=== PATIENT | male | born 1990 | race Caucasian/White ===

== ENCOUNTER 2016-12-03 16:50 | Inpatient (IN) | payer OTHER ==
[2016-12-03 19:45] VITALS: BMI 24.1
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
[2016-12-03] MEDS ORDERED: MENTHOL/PHENOL 1 EACH UD MM PRN (20:25)
[2016-12-03] MEDS ORDERED: MAGNESIUM CITRATE 300 ML BOTTLE PO PRN (20:25)
[2016-12-03] MEDS ORDERED: LOPERAMIDE HCL 2 MG CAPSULE PO PRN (20:25)
[2016-12-03] MEDS ORDERED: ACETAMINOPHEN 325 MG TABLET (FP) PO PRN (20:25)
[2016-12-03] MEDS ORDERED: IBUPROFEN 400 MG TABLET (FP) PO PRN (20:25)
[2016-12-03] MEDS ORDERED: P-EPHED 60MG/TRIPROLIDI 2.5MG TABLET PO PRN (20:25)
[2016-12-03] MEDS ORDERED: MAG HYDROX/AL HYDROX/SIMETH 30 ML UNIT-DOSE CUP PO PRN (20:25)
[2016-12-03] MEDS ORDERED: ONDANSETRON *ODT* 4 MG TABLET SL PRN (20:34)
[2016-12-03] MEDS ORDERED: PATIENT'S OWN MEDICATION (NON-FORMULARY) (Omeprazole 40 MG) PO SCH (22:00)
[2016-12-03] MEDS: BUDESONIDE/FORMETEROL FUMARATE 80/4.5 mcg INHALER IH SCH (22:22)
[2016-12-03] MEDS: THIAMINE HCL 100 MG TABLET (FP) PO SCH (22:22)
[2016-12-03] MEDS: DOCUSATE SODIUM 100 MG CAPSULE (FP) PO SCH (22:22)
[2016-12-03 23:16] LABS: URINE APPEARANCE CLEAR; URINE BILIRUBIN NEGATIVE (NEGATIVE); URINE BLOOD NEGATIVE (NEGATIVE); URINE COLOR COLORLESS; URINE GLUCOSE (UA) NEGATIVE (NEGATIVE); URINE KETONE NEGATIVE (NEGATIVE); URINE LEUK ESTERASE NEGATIVE (NEGATIVE); URINE NITRITE NEGATIVE (NEGATIVE); URINE PROTEIN NEGATIVE (NEGATIVE); URINE UROBILINOGEN NEGATIVE E.U./dl (0.2-1.0)
[2016-12-04] MEDS ORDERED: METHADONE HCL 40 MG DISPERSABLE TABLET PO SCH (06:00)
[2016-12-04] MEDS ORDERED: METHADONE HCL 40 MG DISPERSABLE TABLET ONE (09:04)
[2016-12-04] MEDS ORDERED: METHADONE HCL 10 MG TABLET ONE (09:05)
[2016-12-04] MEDS: METHADONE 40 MG, METHADONE 20 MG PO SCH (09:06)
[2016-12-04] MEDS: BUDESONIDE/FORMETEROL FUMARATE 80/4.5 mcg INHALER IH SCH ×2 (09:08→21:54)
[2016-12-04] MEDS: PRENATAL VITAMINS W/ FOLIC ACID TABLET (FP) PO SCH (09:08)
[2016-12-04] MEDS: DOCUSATE SODIUM 100 MG CAPSULE (FP) PO SCH ×2 (09:08→21:54)
[2016-12-04] MEDS: NICOTINE POLACRILEX 2 MG GUM BC PRN (09:09)
[2016-12-04] MEDS: NICOTINE 21 MG/24 HOURS TOPICAL PATCH TD SCH (09:09)
[2016-12-04] MEDS: FLUTICASONE PROP 0.05% 16 GM NASAL SPRAY NS SCH (10:41)
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
[2016-12-04] MEDS ORDERED: hydrOXYzine PAMOATE 50 MG CAPSULE (FP) PO PRN (11:19)
[2016-12-04] MEDS ORDERED: PNEUMOCOCCAL 23 VACCINE 0.5 ML VIAL IM ONE (12:00)
[2016-12-04] MEDS ORDERED: PNEUMOC 13-VAL CONJ-DIP CRM/PF 0.5 ML DISP.SYRIN IM ONE (12:00)
[2016-12-04] MEDS ORDERED: INFLUENZA VACCINE 45 MCG/0.5 ML (MDV 16-17) IM ONE (12:00)
[2016-12-04 14:53] LABS: ALBUMIN 4.6 g/dl (3.4-5.0); ALK PHOS 64 U/L (45-117); ANION GAP 0 (8-16); BILIRUBIN,TOTAL 0.4 mg/dL (0.2-1.0); CALCIUM 10.3 mg/dL (8.5-10.1); CO2 28 mmol/L (21-32); CREATININE 0.9 mg/dL (0.7-1.3); GLUCOSE,RANDOM 92 mg/dL (74-106); SGOT/AST 17 U/L (15-37); SGPT/ALT 24 U/L (12-78); TOT PROT 7.8 g/dl (6.4-8.2)
[2016-12-04] MEDS: THIAMINE HCL 100 MG TABLET (FP) PO SCH (21:54)
[2016-12-04] MEDS: busPIRone HCL 5 MG TABLET PO SCH (21:54)
[2016-12-05] MEDS ORDERED: METHADONE HCL 40 MG DISPERSABLE TABLET ONE (03:09)
[2016-12-05] MEDS ORDERED: METHADONE HCL 10 MG TABLET ONE (03:09)
[2016-12-05] MEDS: METHADONE 40 MG, METHADONE 20 MG PO SCH (06:50)
[2016-12-05] MEDS: PATIENT'S OWN MEDICATION (NON-FORMULARY) (Omeprazole 40 MG) PO SCH (10:18)
[2016-12-05] MEDS: BUDESONIDE/FORMETEROL FUMARATE 80/4.5 mcg INHALER IH SCH ×2 (10:19→21:53)
[2016-12-05] MEDS: PRENATAL VITAMINS W/ FOLIC ACID TABLET (FP) PO SCH (10:19)
[2016-12-05] MEDS: DOCUSATE SODIUM 100 MG CAPSULE (FP) PO SCH ×2 (10:19→21:53)
[2016-12-05] MEDS: busPIRone HCL 5 MG TABLET PO SCH ×2 (10:19→21:53)
[2016-12-05] MEDS: FLUTICASONE PROP 0.05% 16 GM NASAL SPRAY NS SCH (10:20)
[2016-12-05] MEDS: NICOTINE 21 MG/24 HOURS TOPICAL PATCH TD SCH (10:20)
[2016-12-05 14:09] LABS: MCH 28.3 pg (25.7-33.7); MCHC 32.8 g/dl (32.0-35.9); MEAN CELL VOLUME 86.3 fl (80-96); MEAN PLT VOLUME 8.3 fl (7.5-11.1); PLATELET COUNT 198 K/MM3 (134-434); RDW 13.6 % (11.9-15.9); WHITE BLOOD COUNT 8.3 K/mm3 (4.0-10.0)
[2016-12-05] MEDS: THIAMINE HCL 100 MG TABLET (FP) PO SCH (21:53)
[2016-12-06] MEDS ORDERED: METHADONE HCL 10 MG TABLET ONE (04:07)
[2016-12-06] MEDS ORDERED: METHADONE HCL 40 MG DISPERSABLE TABLET ONE (04:07)
[2016-12-06] MEDS: METHADONE 40 MG, METHADONE 20 MG PO SCH (06:44)
[2016-12-06] MEDS: BUDESONIDE/FORMETEROL FUMARATE 80/4.5 mcg INHALER IH SCH ×2 (10:14→22:00)
[2016-12-06] MEDS: NICOTINE 21 MG/24 HOURS TOPICAL PATCH TD SCH (10:15)
[2016-12-06] MEDS: FLUTICASONE PROP 0.05% 16 GM NASAL SPRAY NS SCH (10:15)
[2016-12-06] MEDS: PRENATAL VITAMINS W/ FOLIC ACID TABLET (FP) PO SCH (10:15)
[2016-12-06] MEDS: PATIENT'S OWN MEDICATION (NON-FORMULARY) (Omeprazole 40 MG) PO SCH (10:15)
[2016-12-06] MEDS: busPIRone HCL 5 MG TABLET PO SCH ×2 (10:15→21:42)
[2016-12-06] MEDS: DOCUSATE SODIUM 100 MG CAPSULE (FP) PO SCH ×2 (10:15→21:42)
[2016-12-06] MEDS: THIAMINE HCL 100 MG TABLET (FP) PO SCH (21:42)
[2016-12-06] MEDS: diphenhydrAMINE HCL 50 MG CAPSULE PO PRN (21:42)
[2016-12-07] MEDS ORDERED: METHADONE HCL 10 MG TABLET ONE (06:19)
[2016-12-07] MEDS ORDERED: METHADONE HCL 40 MG DISPERSABLE TABLET ONE (06:19)
[2016-12-07] MEDS: METHADONE 40 MG, METHADONE 20 MG PO SCH (06:39)
[2016-12-07] MEDS: DOCUSATE SODIUM 100 MG CAPSULE (FP) PO SCH ×2 (10:35→21:50)
[2016-12-07] MEDS: BUDESONIDE/FORMETEROL FUMARATE 80/4.5 mcg INHALER IH SCH ×2 (10:35→21:50)
[2016-12-07] MEDS: busPIRone HCL 5 MG TABLET PO SCH ×2 (10:35→21:50)
[2016-12-07] MEDS: PRENATAL VITAMINS W/ FOLIC ACID TABLET (FP) PO SCH (10:35)
[2016-12-07] MEDS: PATIENT'S OWN MEDICATION (NON-FORMULARY) (Omeprazole 40 MG) PO SCH (10:35)
[2016-12-07] MEDS: NICOTINE 21 MG/24 HOURS TOPICAL PATCH TD SCH (10:36)
[2016-12-07] MEDS: FLUTICASONE PROP 0.05% 16 GM NASAL SPRAY NS SCH (10:36)
[2016-12-07] MEDS: NICOTINE POLACRILEX 2 MG GUM BC PRN (12:39)
[2016-12-07] MEDS: diphenhydrAMINE HCL 50 MG CAPSULE PO PRN (21:51)
[2016-12-07] MEDS: THIAMINE HCL 100 MG TABLET (FP) PO SCH (21:51)
[2016-12-08] MEDS ORDERED: METHADONE HCL 10 MG TABLET ONE (03:09)
[2016-12-08] MEDS ORDERED: METHADONE HCL 40 MG DISPERSABLE TABLET ONE (03:09)
[2016-12-08] MEDS: METHADONE 40 MG, METHADONE 20 MG PO SCH (06:58)
[2016-12-08] MEDS: busPIRone HCL 5 MG TABLET PO SCH ×2 (09:40→21:26)
[2016-12-08] MEDS: NICOTINE 21 MG/24 HOURS TOPICAL PATCH TD SCH (09:40)
[2016-12-08] MEDS: PRENATAL VITAMINS W/ FOLIC ACID TABLET (FP) PO SCH (09:40)
[2016-12-08] MEDS: DOCUSATE SODIUM 100 MG CAPSULE (FP) PO SCH ×2 (09:40→21:26)
[2016-12-08] MEDS: BUDESONIDE/FORMETEROL FUMARATE 80/4.5 mcg INHALER IH SCH ×2 (09:41→21:25)
[2016-12-08] MEDS: PATIENT'S OWN MEDICATION (NON-FORMULARY) (Omeprazole 40 MG) PO SCH (09:41)
[2016-12-08] MEDS: FLUTICASONE PROP 0.05% 16 GM NASAL SPRAY NS SCH (09:41)
[2016-12-08] MEDS: THIAMINE HCL 100 MG TABLET (FP) PO SCH (21:26)
[2016-12-08] MEDS: diphenhydrAMINE HCL 50 MG CAPSULE PO PRN (21:26)
[2016-12-09] MEDS ORDERED: METHADONE HCL 40 MG DISPERSABLE TABLET ONE (03:22)
[2016-12-09] MEDS ORDERED: METHADONE HCL 10 MG TABLET ONE (03:22)
[2016-12-09] MEDS: METHADONE 40 MG, METHADONE 20 MG PO SCH (06:45)
[2016-12-09] MEDS: DOCUSATE SODIUM 100 MG CAPSULE (FP) PO SCH ×2 (10:15→21:41)
[2016-12-09] MEDS: busPIRone HCL 5 MG TABLET PO SCH ×2 (10:15→21:41)
[2016-12-09] MEDS: BUDESONIDE/FORMETEROL FUMARATE 80/4.5 mcg INHALER IH SCH ×2 (10:15→21:41)
[2016-12-09] MEDS: PRENATAL VITAMINS W/ FOLIC ACID TABLET (FP) PO SCH (10:15)
[2016-12-09] MEDS: PATIENT'S OWN MEDICATION (NON-FORMULARY) (Omeprazole 40 MG) PO SCH (10:16)
[2016-12-09] MEDS: FLUTICASONE PROP 0.05% 16 GM NASAL SPRAY NS SCH (10:16)
[2016-12-09] MEDS: NICOTINE 21 MG/24 HOURS TOPICAL PATCH TD SCH (10:16)
[2016-12-09] MEDS ORDERED: HYDROCORTISONE 1% TOPICAL CREAM 30 GM TUBE TP PRN (14:29)
[2016-12-09] MEDS: COLLOIDAL OATMEAL 1 BAR EACH TP PRN (21:39)
[2016-12-09] MEDS: THIAMINE HCL 100 MG TABLET (FP) PO SCH (21:41)
[2016-12-09] MEDS: diphenhydrAMINE HCL 50 MG CAPSULE PO PRN (21:41)
[2016-12-10] MEDS ORDERED: METHADONE HCL 40 MG DISPERSABLE TABLET ONE (05:14)
[2016-12-10] MEDS ORDERED: METHADONE HCL 10 MG TABLET ONE (05:14)
[2016-12-10] MEDS: METHADONE 40 MG, METHADONE 20 MG PO SCH (06:53)
[2016-12-10] MEDS: DOCUSATE SODIUM 100 MG CAPSULE (FP) PO SCH ×2 (09:53→21:22)
[2016-12-10] MEDS: BUDESONIDE/FORMETEROL FUMARATE 80/4.5 mcg INHALER IH SCH ×2 (09:53→21:22)
[2016-12-10] MEDS: PATIENT'S OWN MEDICATION (NON-FORMULARY) (Omeprazole 40 MG) PO SCH (09:53)
[2016-12-10] MEDS: PRENATAL VITAMINS W/ FOLIC ACID TABLET (FP) PO SCH (09:53)
[2016-12-10] MEDS: busPIRone HCL 5 MG TABLET PO SCH ×2 (09:53→21:22)
[2016-12-10] MEDS: FLUTICASONE PROP 0.05% 16 GM NASAL SPRAY NS SCH (09:53)
[2016-12-10] MEDS: NICOTINE 21 MG/24 HOURS TOPICAL PATCH TD SCH (09:54)
[2016-12-10] MEDS: MAGNESIUM HYDROX 2400MG/30ML ORAL SUSPENSION 30 ML CUP PO PRN (09:55)
[2016-12-10] MEDS: THIAMINE HCL 100 MG TABLET (FP) PO SCH (21:22)
[2016-12-10] MEDS: diphenhydrAMINE HCL 50 MG CAPSULE PO PRN (21:23)
[2016-12-11] MEDS ORDERED: METHADONE HCL 40 MG DISPERSABLE TABLET ONE (05:15)
[2016-12-11] MEDS ORDERED: METHADONE HCL 10 MG TABLET ONE (05:15)
[2016-12-11] MEDS: METHADONE 40 MG, METHADONE 20 MG PO SCH (06:30)
[2016-12-11] MEDS: busPIRone HCL 5 MG TABLET PO SCH ×2 (09:51→21:17)
[2016-12-11] MEDS: BUDESONIDE/FORMETEROL FUMARATE 80/4.5 mcg INHALER IH SCH ×2 (09:51→21:17)
[2016-12-11] MEDS: PRENATAL VITAMINS W/ FOLIC ACID TABLET (FP) PO SCH (09:51)
[2016-12-11] MEDS: DOCUSATE SODIUM 100 MG CAPSULE (FP) PO SCH ×2 (09:51→21:17)
[2016-12-11] MEDS: PATIENT'S OWN MEDICATION (NON-FORMULARY) (Omeprazole 40 MG) PO SCH (09:51)
[2016-12-11] MEDS: FLUTICASONE PROP 0.05% 16 GM NASAL SPRAY NS SCH (09:52)
[2016-12-11] MEDS: NICOTINE 21 MG/24 HOURS TOPICAL PATCH TD SCH (09:52)
[2016-12-11] MEDS ORDERED: NICOTINE 21 MG/24 HOURS TOPICAL PATCH TD PRN (18:03)
[2016-12-11] MEDS ORDERED: NICOTINE POLACRILEX 2 MG GUM BC PRN (18:04)
--- NOTE | 2016-12-11 18:06 | PN ---
S Progress Note Note: received nurse call patient dose not want 21 mg nicotine placement patch favor 4 mg gum continue rehab
[2016-12-11] MEDS: THIAMINE HCL 100 MG TABLET (FP) PO SCH (21:17)
[2016-12-11] MEDS: diphenhydrAMINE HCL 50 MG CAPSULE PO PRN (21:18)
[2016-12-12] MEDS ORDERED: METHADONE HCL 40 MG DISPERSABLE TABLET ONE (05:42)
[2016-12-12] MEDS ORDERED: METHADONE HCL 10 MG TABLET ONE (05:43)
[2016-12-12] MEDS: METHADONE 40 MG, METHADONE 20 MG PO SCH (06:26)
[2016-12-12] MEDS: PATIENT'S OWN MEDICATION (NON-FORMULARY) (Omeprazole 40 MG) PO SCH (09:59)
[2016-12-12] MEDS: BUDESONIDE/FORMETEROL FUMARATE 80/4.5 mcg INHALER IH SCH ×2 (09:59→21:35)
[2016-12-12] MEDS: busPIRone HCL 5 MG TABLET PO SCH ×2 (09:59→21:35)
[2016-12-12] MEDS: PRENATAL VITAMINS W/ FOLIC ACID TABLET (FP) PO SCH (09:59)
[2016-12-12] MEDS: FLUTICASONE PROP 0.05% 16 GM NASAL SPRAY NS SCH (10:00)
[2016-12-12] MEDS: DOCUSATE SODIUM 100 MG CAPSULE (FP) PO SCH ×2 (10:00→21:35)
[2016-12-12] MEDS: THIAMINE HCL 100 MG TABLET (FP) PO SCH (21:34)
[2016-12-12] MEDS: diphenhydrAMINE HCL 50 MG CAPSULE PO PRN (21:36)
[2016-12-13] MEDS ORDERED: METHADONE HCL 40 MG DISPERSABLE TABLET ONE (03:06)
[2016-12-13] MEDS ORDERED: METHADONE HCL 10 MG TABLET ONE (03:07)
[2016-12-13] MEDS: METHADONE 40 MG, METHADONE 20 MG PO SCH (06:40)
[2016-12-13] MEDS: BUDESONIDE/FORMETEROL FUMARATE 80/4.5 mcg INHALER IH SCH ×2 (09:55→21:26)
[2016-12-13] MEDS: PRENATAL VITAMINS W/ FOLIC ACID TABLET (FP) PO SCH (09:55)
[2016-12-13] MEDS: FLUTICASONE PROP 0.05% 16 GM NASAL SPRAY NS SCH (09:55)
[2016-12-13] MEDS: DOCUSATE SODIUM 100 MG CAPSULE (FP) PO SCH ×2 (09:55→21:25)
[2016-12-13] MEDS: PATIENT'S OWN MEDICATION (NON-FORMULARY) (Omeprazole 40 MG) PO SCH (09:55)
[2016-12-13] MEDS: busPIRone HCL 5 MG TABLET PO SCH ×2 (09:55→21:26)
[2016-12-13] MEDS: diphenhydrAMINE HCL 50 MG CAPSULE PO PRN (21:26)
[2016-12-13] MEDS: THIAMINE HCL 100 MG TABLET (FP) PO SCH (21:26)
[2016-12-14] MEDS ORDERED: METHADONE HCL 10 MG TABLET ONE (03:54)
[2016-12-14] MEDS ORDERED: METHADONE HCL 40 MG DISPERSABLE TABLET ONE (03:54)
[2016-12-14] MEDS: METHADONE 40 MG, METHADONE 20 MG PO SCH (06:23)
[2016-12-14] MEDS: FLUTICASONE PROP 0.05% 16 GM NASAL SPRAY NS SCH (10:22)
[2016-12-14] MEDS: busPIRone HCL 5 MG TABLET PO SCH ×2 (10:22→21:23)
[2016-12-14] MEDS: PRENATAL VITAMINS W/ FOLIC ACID TABLET (FP) PO SCH (10:22)
[2016-12-14] MEDS: PATIENT'S OWN MEDICATION (NON-FORMULARY) (Omeprazole 40 MG) PO SCH (10:22)
[2016-12-14] MEDS: BUDESONIDE/FORMETEROL FUMARATE 80/4.5 mcg INHALER IH SCH ×2 (10:22→21:22)
[2016-12-14] MEDS: DOCUSATE SODIUM 100 MG CAPSULE (FP) PO SCH ×2 (10:22→21:23)
[2016-12-14] MEDS: diphenhydrAMINE HCL 50 MG CAPSULE PO PRN (21:22)
[2016-12-14] MEDS: THIAMINE HCL 100 MG TABLET (FP) PO SCH (21:22)
[2016-12-15] MEDS ORDERED: METHADONE HCL 40 MG DISPERSABLE TABLET ONE (03:27)
[2016-12-15] MEDS ORDERED: METHADONE HCL 10 MG TABLET ONE (03:28)
[2016-12-15] MEDS: METHADONE 40 MG, METHADONE 20 MG PO SCH (06:31)
[2016-12-15] MEDS: BUDESONIDE/FORMETEROL FUMARATE 80/4.5 mcg INHALER IH SCH ×2 (10:14→21:35)
[2016-12-15] MEDS: FLUTICASONE PROP 0.05% 16 GM NASAL SPRAY NS SCH (10:14)
[2016-12-15] MEDS: busPIRone HCL 5 MG TABLET PO SCH ×2 (10:14→21:34)
[2016-12-15] MEDS: PRENATAL VITAMINS W/ FOLIC ACID TABLET (FP) PO SCH (10:14)
[2016-12-15] MEDS: PATIENT'S OWN MEDICATION (NON-FORMULARY) (Omeprazole 40 MG) PO SCH (10:15)
[2016-12-15] MEDS: DOCUSATE SODIUM 100 MG CAPSULE (FP) PO SCH ×2 (10:15→21:34)
[2016-12-15] MEDS: THIAMINE HCL 100 MG TABLET (FP) PO SCH (21:34)
[2016-12-15] MEDS: diphenhydrAMINE HCL 50 MG CAPSULE PO PRN (21:35)
[2016-12-16] MEDS ORDERED: METHADONE HCL 40 MG DISPERSABLE TABLET ONE (03:08)
[2016-12-16] MEDS ORDERED: METHADONE HCL 10 MG TABLET ONE (03:08)
[2016-12-16] MEDS: METHADONE 40 MG, METHADONE 20 MG PO SCH (06:19)
[2016-12-16] MEDS: FLUTICASONE PROP 0.05% 16 GM NASAL SPRAY NS SCH (10:44)
[2016-12-16] MEDS: busPIRone HCL 5 MG TABLET PO SCH ×2 (10:44→21:28)
[2016-12-16] MEDS: DOCUSATE SODIUM 100 MG CAPSULE (FP) PO SCH ×2 (10:44→21:28)
[2016-12-16] MEDS: BUDESONIDE/FORMETEROL FUMARATE 80/4.5 mcg INHALER IH SCH ×2 (10:44→21:28)
[2016-12-16] MEDS: PRENATAL VITAMINS W/ FOLIC ACID TABLET (FP) PO SCH (10:44)
[2016-12-16] MEDS: PATIENT'S OWN MEDICATION (NON-FORMULARY) (Omeprazole 40 MG) PO SCH (10:45)
[2016-12-16] MEDS: THIAMINE HCL 100 MG TABLET (FP) PO SCH (21:28)
[2016-12-16] MEDS: diphenhydrAMINE HCL 50 MG CAPSULE PO PRN ×2 (21:29→23:44)
[2016-12-16] MEDS: MAGNESIUM HYDROX 2400MG/30ML ORAL SUSPENSION 30 ML CUP PO PRN (21:30)
[2016-12-17] MEDS ORDERED: METHADONE HCL 10 MG TABLET PO SCH (07:45)
[2016-12-17] MEDS ORDERED: METHADONE HCL 10 MG TABLET PO ONE (08:34)
[2016-12-17] MEDS ORDERED: METHADONE 40 MG, METHADONE 20 MG PO ONE (08:42)
[2016-12-17] MEDS ORDERED: METHADONE HCL 40 MG DISPERSABLE TABLET ONE (08:48)
[2016-12-17] MEDS ORDERED: METHADONE HCL 10 MG TABLET ONE (08:48)
[2016-12-17] MEDS: BUDESONIDE/FORMETEROL FUMARATE 80/4.5 mcg INHALER IH SCH ×2 (10:25→21:51)
[2016-12-17] MEDS: FLUTICASONE PROP 0.05% 16 GM NASAL SPRAY NS SCH (10:25)
[2016-12-17] MEDS: DOCUSATE SODIUM 100 MG CAPSULE (FP) PO SCH ×2 (10:25→21:51)
[2016-12-17] MEDS: PRENATAL VITAMINS W/ FOLIC ACID TABLET (FP) PO SCH (10:25)
[2016-12-17] MEDS: busPIRone HCL 5 MG TABLET PO SCH ×2 (10:25→21:51)
[2016-12-17] MEDS: THIAMINE HCL 100 MG TABLET (FP) PO SCH (21:51)
[2016-12-18] MEDS ORDERED: METHADONE HCL 40 MG DISPERSABLE TABLET ONE (06:06)
[2016-12-18] MEDS ORDERED: METHADONE HCL 10 MG TABLET ONE (06:06)
[2016-12-18] MEDS: METHADONE 40 MG, METHADONE 20 MG PO SCH (06:36)
[2016-12-18] MEDS: FLUTICASONE PROP 0.05% 16 GM NASAL SPRAY NS SCH (10:31)
[2016-12-18] MEDS: BUDESONIDE/FORMETEROL FUMARATE 80/4.5 mcg INHALER IH SCH ×2 (10:31→21:44)
[2016-12-18] MEDS: PRENATAL VITAMINS W/ FOLIC ACID TABLET (FP) PO SCH (10:31)
[2016-12-18] MEDS: POLYETHYLENE GLYCOL 3350 119 GM BTL PO SCH (10:32)
[2016-12-18] MEDS: PANTOPRAZOLE 40 MG TABLET (FP) PO SCH (10:32)
[2016-12-18] MEDS: busPIRone HCL 5 MG TABLET PO SCH ×2 (10:32→21:44)
[2016-12-18] MEDS: DOCUSATE SODIUM 100 MG CAPSULE (FP) PO SCH ×2 (10:32→21:44)
[2016-12-18] MEDS: THIAMINE HCL 100 MG TABLET (FP) PO SCH (21:44)
[2016-12-18] MEDS: diphenhydrAMINE HCL 50 MG CAPSULE PO PRN (21:45)
[2016-12-18] MEDS: MAGNESIUM HYDROX 2400MG/30ML ORAL SUSPENSION 30 ML CUP PO PRN (21:46)
[2016-12-19] MEDS ORDERED: METHADONE HCL 40 MG DISPERSABLE TABLET ONE (03:12)
[2016-12-19] MEDS ORDERED: METHADONE HCL 10 MG TABLET ONE (03:12)
[2016-12-19] MEDS: METHADONE 40 MG, METHADONE 20 MG PO SCH (06:12)
[2016-12-19] MEDS: DOCUSATE SODIUM 100 MG CAPSULE (FP) PO SCH ×2 (10:00→22:01)
[2016-12-19] MEDS: PANTOPRAZOLE 40 MG TABLET (FP) PO SCH (10:00)
[2016-12-19] MEDS: BUDESONIDE/FORMETEROL FUMARATE 80/4.5 mcg INHALER IH SCH ×2 (10:01→22:01)
[2016-12-19] MEDS: PRENATAL VITAMINS W/ FOLIC ACID TABLET (FP) PO SCH (10:01)
[2016-12-19] MEDS: POLYETHYLENE GLYCOL 3350 119 GM BTL PO SCH (10:01)
[2016-12-19] MEDS: FLUTICASONE PROP 0.05% 16 GM NASAL SPRAY NS SCH (10:01)
[2016-12-19] MEDS: busPIRone HCL 5 MG TABLET PO SCH ×2 (10:01→22:01)
[2016-12-19] MEDS: THIAMINE HCL 100 MG TABLET (FP) PO SCH (22:01)
[2016-12-19] MEDS: diphenhydrAMINE HCL 50 MG CAPSULE PO PRN (22:02)
[2016-12-20] MEDS ORDERED: METHADONE HCL 40 MG DISPERSABLE TABLET ONE (06:39)
[2016-12-20] MEDS ORDERED: METHADONE HCL 10 MG TABLET ONE (06:40)
[2016-12-20] MEDS: METHADONE 40 MG, METHADONE 20 MG PO SCH (06:40)
[2016-12-20] MEDS: DOCUSATE SODIUM 100 MG CAPSULE (FP) PO SCH ×2 (09:53→21:21)
[2016-12-20] MEDS: PRENATAL VITAMINS W/ FOLIC ACID TABLET (FP) PO SCH (09:53)
[2016-12-20] MEDS: PANTOPRAZOLE 40 MG TABLET (FP) PO SCH (09:53)
[2016-12-20] MEDS: FLUTICASONE PROP 0.05% 16 GM NASAL SPRAY NS SCH (09:53)
[2016-12-20] MEDS: busPIRone HCL 5 MG TABLET PO SCH ×2 (09:53→21:21)
[2016-12-20] MEDS: BUDESONIDE/FORMETEROL FUMARATE 80/4.5 mcg INHALER IH SCH ×2 (09:54→21:21)
[2016-12-20] MEDS: POLYETHYLENE GLYCOL 3350 119 GM BTL PO SCH (09:56)
[2016-12-20] MEDS: THIAMINE HCL 100 MG TABLET (FP) PO SCH (21:21)
[2016-12-20] MEDS: diphenhydrAMINE HCL 50 MG CAPSULE PO PRN (21:22)
[2016-12-20] MEDS: guaiFENesin/D-METHORPHAN HB 10 ML UNIT-DOSE CUPS PO PRN (21:43)
[2016-12-21] MEDS ORDERED: METHADONE HCL 40 MG DISPERSABLE TABLET ONE (02:36)
[2016-12-21] MEDS ORDERED: METHADONE HCL 10 MG TABLET ONE (02:37)
[2016-12-21] MEDS: METHADONE 40 MG, METHADONE 20 MG PO SCH (06:35)
[2016-12-21] MEDS: BUDESONIDE/FORMETEROL FUMARATE 80/4.5 mcg INHALER IH SCH ×2 (09:39→21:27)
[2016-12-21] MEDS: DOCUSATE SODIUM 100 MG CAPSULE (FP) PO SCH ×2 (09:40→21:26)
[2016-12-21] MEDS: PRENATAL VITAMINS W/ FOLIC ACID TABLET (FP) PO SCH (09:40)
[2016-12-21] MEDS: FLUTICASONE PROP 0.05% 16 GM NASAL SPRAY NS SCH (09:40)
[2016-12-21] MEDS: busPIRone HCL 5 MG TABLET PO SCH ×2 (09:40→21:27)
[2016-12-21] MEDS: PANTOPRAZOLE 40 MG TABLET (FP) PO SCH (09:40)
[2016-12-21] MEDS: POLYETHYLENE GLYCOL 3350 119 GM BTL PO SCH (09:43)
[2016-12-21] MEDS: THIAMINE HCL 100 MG TABLET (FP) PO SCH (21:27)
[2016-12-21] MEDS: guaiFENesin/D-METHORPHAN HB 10 ML UNIT-DOSE CUPS PO PRN (21:28)
[2016-12-21] MEDS: diphenhydrAMINE HCL 50 MG CAPSULE PO PRN (21:28)
[2016-12-22] MEDS ORDERED: METHADONE HCL 40 MG DISPERSABLE TABLET ONE (03:18)
[2016-12-22] MEDS ORDERED: METHADONE HCL 10 MG TABLET ONE (03:18)
[2016-12-22] MEDS: METHADONE 40 MG, METHADONE 20 MG PO SCH (06:20)
[2016-12-22] MEDS: BUDESONIDE/FORMETEROL FUMARATE 80/4.5 mcg INHALER IH SCH ×2 (10:13→21:57)
[2016-12-22] MEDS: DOCUSATE SODIUM 100 MG CAPSULE (FP) PO SCH ×2 (10:14→21:55)
[2016-12-22] MEDS: busPIRone HCL 5 MG TABLET PO SCH ×2 (10:14→21:55)
[2016-12-22] MEDS: PRENATAL VITAMINS W/ FOLIC ACID TABLET (FP) PO SCH (10:14)
[2016-12-22] MEDS: POLYETHYLENE GLYCOL 3350 119 GM BTL PO SCH (10:14)
[2016-12-22] MEDS: PANTOPRAZOLE 40 MG TABLET (FP) PO SCH (10:14)
[2016-12-22] MEDS: FLUTICASONE PROP 0.05% 16 GM NASAL SPRAY NS SCH (10:16)
[2016-12-22] MEDS: guaiFENesin 600 MG TABLET.ER (FP) PO SCH (21:55)
[2016-12-22] MEDS: THIAMINE HCL 100 MG TABLET (FP) PO SCH (21:55)
[2016-12-22] MEDS: diphenhydrAMINE HCL 50 MG CAPSULE PO PRN (21:55)
[2016-12-23] MEDS ORDERED: METHADONE HCL 40 MG DISPERSABLE TABLET ONE (03:14)
[2016-12-23] MEDS ORDERED: METHADONE HCL 10 MG TABLET ONE (03:14)
[2016-12-23] MEDS: METHADONE 40 MG, METHADONE 20 MG PO SCH (06:19)
[2016-12-23] MEDS: BUDESONIDE/FORMETEROL FUMARATE 80/4.5 mcg INHALER IH SCH ×2 (10:14→21:44)
[2016-12-23] MEDS: DOCUSATE SODIUM 100 MG CAPSULE (FP) PO SCH ×2 (10:15→21:44)
[2016-12-23] MEDS: PANTOPRAZOLE 40 MG TABLET (FP) PO SCH (10:15)
[2016-12-23] MEDS: guaiFENesin 600 MG TABLET.ER (FP) PO SCH ×2 (10:15→21:44)
[2016-12-23] MEDS: busPIRone HCL 5 MG TABLET PO SCH ×2 (10:15→21:44)
[2016-12-23] MEDS: PRENATAL VITAMINS W/ FOLIC ACID TABLET (FP) PO SCH (10:15)
[2016-12-23] MEDS: POLYETHYLENE GLYCOL 3350 119 GM BTL PO SCH (10:16)
[2016-12-23] MEDS: FLUTICASONE PROP 0.05% 16 GM NASAL SPRAY NS SCH (10:16)
[2016-12-23] MEDS: ALBUTEROL SO4 2.5/IPRATROPIUM 0.5 INH SOL 3 ML VIAL.NEB. NEB PRN (11:38)
[2016-12-23] MEDS: THIAMINE HCL 100 MG TABLET (FP) PO SCH (21:44)
[2016-12-23] MEDS: diphenhydrAMINE HCL 50 MG CAPSULE PO PRN (21:44)
[2016-12-24] MEDS ORDERED: METHADONE HCL 40 MG DISPERSABLE TABLET ONE (05:43)
[2016-12-24] MEDS ORDERED: METHADONE HCL 10 MG TABLET ONE (05:43)
[2016-12-24] MEDS: METHADONE 40 MG, METHADONE 20 MG PO SCH (06:46)
[2016-12-24] MEDS: ALBUTEROL SO4 2.5/IPRATROPIUM 0.5 INH SOL 3 ML VIAL.NEB. NEB PRN (08:29)
[2016-12-24] MEDS: DOCUSATE SODIUM 100 MG CAPSULE (FP) PO SCH ×2 (10:03→21:39)
[2016-12-24] MEDS: busPIRone HCL 5 MG TABLET PO SCH ×2 (10:03→21:40)
[2016-12-24] MEDS: PRENATAL VITAMINS W/ FOLIC ACID TABLET (FP) PO SCH (10:03)
[2016-12-24] MEDS: BUDESONIDE/FORMETEROL FUMARATE 80/4.5 mcg INHALER IH SCH ×2 (10:04→21:40)
[2016-12-24] MEDS: FLUTICASONE PROP 0.05% 16 GM NASAL SPRAY NS SCH (10:06)
[2016-12-24] MEDS: PANTOPRAZOLE 40 MG TABLET (FP) PO SCH (10:06)
[2016-12-24] MEDS: guaiFENesin 600 MG TABLET.ER (FP) PO SCH ×2 (10:06→21:40)
[2016-12-24] MEDS: POLYETHYLENE GLYCOL 3350 119 GM BTL PO SCH (10:06)
--- NOTE | 2016-12-24 12:56 | PN ---
[facility] Progress Note (SOAP) Subjective: cough with greenish phlegm and rash on neck Objective: 12/24/16 12:53 Vital Signs Temperature 98.2 F 12/24/16 07:03 Pulse Rate 64 12/24/16 07:03 Respiratory Rate 18 12/24/16 07:03 Blood Pressure 127/68 12/24/16 07:03 O2 Sat by Pulse Oximetry (%) Laboratory Tests 12/03/16 12/04/16 12/04/16 23:05 11:40 11:40 WBC RBC Hgb Hct MCV MCHC RDW Plt Count MPV Sodium 131 L Potassium 3.9 Chloride 103 Carbon Dioxide 28 Anion Gap 0 L BUN 14 Creatinine 0.9 Creat Clearance w eGFR > 60 Random Glucose 92 Calcium 10.3 H Total Bilirubin 0.4 AST 17 ALT 24 Alkaline Phosphatase 64 Total Protein 7.8 Albumin 4.6 Urine Color Colorless Urine Appearance Clear Urine pH 7.0 Ur Specific [place] 1.001 Urine Protein Negative Urine Glucose (UA) Negative Urine Ketones Negative Urine Blood Negative Urine Nitrite Negative Urine Bilirubin Negative Urine Urobilinogen Negative Ur Leukocyte Esterase Negative RPR Titer Nonreactive Hepatitis C Antibody 12/04/16 12/05/16 12:00 12:00 WBC 8.3 RBC 5.21 Hgb 14.7 Hct 45.0 MCV 86.3 MCHC 32.8 RDW 13.6 Plt Count 198 MPV 8.3 Sodium Potassium Chloride Carbon Dioxide Anion Gap BUN Creatinine Creat Clearance w eGFR Random Glucose Calcium Total Bilirubin AST ALT Alkaline Phosphatase Total Protein Albumin Urine Color Urine Appearance Urine pH Ur Specific [place] Urine Protein Urine Glucose (UA) Urine Ketones Urine Blood Urine Nitrite Urine Bilirubin Urine Urobilinogen Ur Leukocyte Esterase RPR Titer Hepatitis C Antibody <0.1 pt aox3 in nad w/o fever skin small papules around neck upper chest Assessment: 12/24/16 12:55 cough rash Plan: cont. rehab increase fluids cont. mucinex cxr hydroxyzine qid
[2016-12-24] MEDS: THIAMINE HCL 100 MG TABLET (FP) PO SCH (21:40)
[2016-12-24] MEDS: diphenhydrAMINE HCL 50 MG CAPSULE PO PRN (21:40)
[2016-12-25] MEDS: ALBUTEROL SO4 2.5/IPRATROPIUM 0.5 INH SOL 3 ML VIAL.NEB. NEB PRN (00:02)
[2016-12-25] MEDS ORDERED: METHADONE HCL 40 MG DISPERSABLE TABLET ONE (06:08)
[2016-12-25] MEDS ORDERED: METHADONE HCL 10 MG TABLET ONE (06:08)
[2016-12-25] MEDS: METHADONE 40 MG, METHADONE 20 MG PO SCH (06:29)
[2016-12-25] MEDS: guaiFENesin 600 MG TABLET.ER (FP) PO SCH ×2 (10:00→21:30)
[2016-12-25] MEDS: BUDESONIDE/FORMETEROL FUMARATE 80/4.5 mcg INHALER IH SCH ×2 (10:00→21:30)
[2016-12-25] MEDS: DOCUSATE SODIUM 100 MG CAPSULE (FP) PO SCH ×2 (10:00→21:30)
[2016-12-25] MEDS: PRENATAL VITAMINS W/ FOLIC ACID TABLET (FP) PO SCH (10:00)
[2016-12-25] MEDS: PANTOPRAZOLE 40 MG TABLET (FP) PO SCH (10:00)
[2016-12-25] MEDS: busPIRone HCL 5 MG TABLET PO SCH ×2 (10:00→21:30)
[2016-12-25] MEDS: FLUTICASONE PROP 0.05% 16 GM NASAL SPRAY NS SCH (10:02)
[2016-12-25] MEDS: POLYETHYLENE GLYCOL 3350 119 GM BTL PO SCH (10:03)
[2016-12-25] MEDS: diphenhydrAMINE HCL 50 MG CAPSULE PO PRN (21:30)
[2016-12-25] MEDS: THIAMINE HCL 100 MG TABLET (FP) PO SCH (21:30)
[2016-12-26] MEDS ORDERED: METHADONE HCL 10 MG TABLET ONE (03:15)
[2016-12-26] MEDS ORDERED: METHADONE HCL 40 MG DISPERSABLE TABLET ONE (03:15)
[2016-12-26] MEDS: METHADONE 40 MG, METHADONE 20 MG PO SCH (06:13)
[2016-12-26] MEDS: BUDESONIDE/FORMETEROL FUMARATE 80/4.5 mcg INHALER IH SCH ×2 (10:25→21:44)
[2016-12-26] MEDS: busPIRone HCL 5 MG TABLET PO SCH ×2 (10:25→21:44)
[2016-12-26] MEDS: guaiFENesin 600 MG TABLET.ER (FP) PO SCH ×2 (10:25→21:44)
[2016-12-26] MEDS: POLYETHYLENE GLYCOL 3350 119 GM BTL PO SCH (10:25)
[2016-12-26] MEDS: PRENATAL VITAMINS W/ FOLIC ACID TABLET (FP) PO SCH (10:25)
[2016-12-26] MEDS: PANTOPRAZOLE 40 MG TABLET (FP) PO SCH (10:25)
[2016-12-26] MEDS: DOCUSATE SODIUM 100 MG CAPSULE (FP) PO SCH ×2 (10:25→21:44)
[2016-12-26] MEDS: FLUTICASONE PROP 0.05% 16 GM NASAL SPRAY NS SCH (10:26)
[2016-12-26] MEDS: ALBUTEROL SO4 2.5/IPRATROPIUM 0.5 INH SOL 3 ML VIAL.NEB. NEB PRN ×2 (11:22→21:45)
--- NOTE | 2016-12-26 11:55 | PN ---
[facility] Progress Note Note: cxr reviewed wnl co constipation sp miralax will monitor today and increase regimen if persistent
[2016-12-26] MEDS: THIAMINE HCL 100 MG TABLET (FP) PO SCH (21:44)
[2016-12-26] MEDS: diphenhydrAMINE HCL 50 MG CAPSULE PO PRN (21:44)
[2016-12-27] MEDS ORDERED: METHADONE HCL 40 MG DISPERSABLE TABLET ONE (03:15)
[2016-12-27] MEDS ORDERED: METHADONE HCL 10 MG TABLET ONE (03:15)
[2016-12-27] MEDS: METHADONE 40 MG, METHADONE 20 MG PO SCH (06:34)
[2016-12-27] MEDS: POLYETHYLENE GLYCOL 3350 119 GM BTL PO SCH (10:13)
[2016-12-27] MEDS: PRENATAL VITAMINS W/ FOLIC ACID TABLET (FP) PO SCH (10:13)
[2016-12-27] MEDS: BUDESONIDE/FORMETEROL FUMARATE 80/4.5 mcg INHALER IH SCH ×2 (10:13→21:55)
[2016-12-27] MEDS: busPIRone HCL 5 MG TABLET PO SCH ×2 (10:13→21:56)
[2016-12-27] MEDS: PANTOPRAZOLE 40 MG TABLET (FP) PO SCH (10:13)
[2016-12-27] MEDS: FLUTICASONE PROP 0.05% 16 GM NASAL SPRAY NS SCH (10:13)
[2016-12-27] MEDS: guaiFENesin 600 MG TABLET.ER (FP) PO SCH ×2 (10:13→21:57)
[2016-12-27] MEDS: DOCUSATE SODIUM 100 MG CAPSULE (FP) PO SCH ×2 (10:13→21:56)
[2016-12-27] MEDS: diphenhydrAMINE HCL 50 MG CAPSULE PO PRN (21:56)
[2016-12-27] MEDS: THIAMINE HCL 100 MG TABLET (FP) PO SCH (21:56)
[2016-12-27] MEDS: ALBUTEROL SO4 2.5/IPRATROPIUM 0.5 INH SOL 3 ML VIAL.NEB. NEB PRN (22:42)
[2016-12-28] MEDS ORDERED: METHADONE HCL 40 MG DISPERSABLE TABLET ONE (03:50)
[2016-12-28] MEDS ORDERED: METHADONE HCL 10 MG TABLET ONE (03:51)
[2016-12-28] MEDS: METHADONE 40 MG, METHADONE 20 MG PO SCH (06:32)
[2016-12-28] MEDS: FLUTICASONE PROP 0.05% 16 GM NASAL SPRAY NS SCH (10:11)
[2016-12-28] MEDS: POLYETHYLENE GLYCOL 3350 119 GM BTL PO SCH (10:11)
[2016-12-28] MEDS: DOCUSATE SODIUM 100 MG CAPSULE (FP) PO SCH ×2 (10:11→21:31)
[2016-12-28] MEDS: PANTOPRAZOLE 40 MG TABLET (FP) PO SCH (10:11)
[2016-12-28] MEDS: PRENATAL VITAMINS W/ FOLIC ACID TABLET (FP) PO SCH (10:11)
[2016-12-28] MEDS: busPIRone HCL 5 MG TABLET PO SCH ×2 (10:11→21:31)
[2016-12-28] MEDS: BUDESONIDE/FORMETEROL FUMARATE 80/4.5 mcg INHALER IH SCH ×2 (10:11→21:32)
[2016-12-28] MEDS: guaiFENesin 600 MG TABLET.ER (FP) PO SCH ×2 (10:11→21:32)
[2016-12-28] MEDS: COLLOIDAL OATMEAL 1 BAR EACH TP PRN (10:12)
[2016-12-28] MEDS: ALBUTEROL SO4 2.5/IPRATROPIUM 0.5 INH SOL 3 ML VIAL.NEB. NEB PRN (18:34)
[2016-12-28] MEDS: THIAMINE HCL 100 MG TABLET (FP) PO SCH (21:31)
[2016-12-28] MEDS: diphenhydrAMINE HCL 50 MG CAPSULE PO PRN (21:32)
[2016-12-29] MEDS ORDERED: METHADONE HCL 40 MG DISPERSABLE TABLET ONE (03:08)
[2016-12-29] MEDS ORDERED: METHADONE HCL 10 MG TABLET ONE (03:09)
[2016-12-29] MEDS: METHADONE 40 MG, METHADONE 20 MG PO SCH (06:26)
[2016-12-29] MEDS: DOCUSATE SODIUM 100 MG CAPSULE (FP) PO SCH ×2 (09:55→21:56)
[2016-12-29] MEDS: guaiFENesin 600 MG TABLET.ER (FP) PO SCH ×2 (09:55→21:56)
[2016-12-29] MEDS: BUDESONIDE/FORMETEROL FUMARATE 80/4.5 mcg INHALER IH SCH ×2 (09:55→21:57)
[2016-12-29] MEDS: busPIRone HCL 5 MG TABLET PO SCH ×2 (09:55→21:56)
[2016-12-29] MEDS: PRENATAL VITAMINS W/ FOLIC ACID TABLET (FP) PO SCH (09:55)
[2016-12-29] MEDS: PANTOPRAZOLE 40 MG TABLET (FP) PO SCH (09:55)
[2016-12-29] MEDS: FLUTICASONE PROP 0.05% 16 GM NASAL SPRAY NS SCH (09:56)
[2016-12-29] MEDS: POLYETHYLENE GLYCOL 3350 119 GM BTL PO SCH (09:56)
[2016-12-29] MEDS: ALBUTEROL SO4 2.5/IPRATROPIUM 0.5 INH SOL 3 ML VIAL.NEB. NEB PRN ×2 (13:21→23:40)
[2016-12-29] MEDS: THIAMINE HCL 100 MG TABLET (FP) PO SCH (21:56)
[2016-12-29] MEDS: diphenhydrAMINE HCL 50 MG CAPSULE PO PRN (21:56)
[2016-12-30] MEDS ORDERED: METHADONE HCL 40 MG DISPERSABLE TABLET ONE (03:16)
[2016-12-30] MEDS ORDERED: METHADONE HCL 10 MG TABLET ONE (03:16)
[2016-12-30] MEDS: METHADONE 40 MG, METHADONE 20 MG PO SCH (06:14)
[2016-12-30] MEDS: BUDESONIDE/FORMETEROL FUMARATE 80/4.5 mcg INHALER IH SCH ×2 (10:14→21:44)
[2016-12-30] MEDS: FLUTICASONE PROP 0.05% 16 GM NASAL SPRAY NS SCH (10:14)
[2016-12-30] MEDS: guaiFENesin 600 MG TABLET.ER (FP) PO SCH ×2 (10:14→21:45)
[2016-12-30] MEDS: PRENATAL VITAMINS W/ FOLIC ACID TABLET (FP) PO SCH (10:14)
[2016-12-30] MEDS: PANTOPRAZOLE 40 MG TABLET (FP) PO SCH (10:15)
[2016-12-30] MEDS: DOCUSATE SODIUM 100 MG CAPSULE (FP) PO SCH ×2 (10:15→21:45)
[2016-12-30] MEDS: busPIRone HCL 5 MG TABLET PO SCH ×2 (10:15→21:45)
[2016-12-30] MEDS: POLYETHYLENE GLYCOL 3350 119 GM BTL PO SCH (10:17)
[2016-12-30] MEDS: ALBUTEROL SO4 2.5/IPRATROPIUM 0.5 INH SOL 3 ML VIAL.NEB. NEB PRN (18:08)
[2016-12-30] MEDS: THIAMINE HCL 100 MG TABLET (FP) PO SCH (21:44)
[2016-12-30] MEDS: diphenhydrAMINE HCL 50 MG CAPSULE PO PRN (21:45)
[2016-12-30] MEDS: CLOTRIMAZOLE/BETAMET DIPROP 15 GM TUBE TP SCH (21:46)
[2016-12-31] MEDS ORDERED: METHADONE HCL 40 MG DISPERSABLE TABLET ONE (03:18)
[2016-12-31] MEDS ORDERED: METHADONE HCL 10 MG TABLET ONE (03:18)
[2016-12-31] MEDS ORDERED: METHADONE 40 MG, METHADONE 20 MG PO SCH (06:00)
[2016-12-31 06:56] VITALS: BP 135/60; PULSE 70; TEMP 98
[2016-12-31] MEDS: PRENATAL VITAMINS W/ FOLIC ACID TABLET (FP) PO SCH (10:15)
[2016-12-31] MEDS: PANTOPRAZOLE 40 MG TABLET (FP) PO SCH (10:15)
[2016-12-31] MEDS: BUDESONIDE/FORMETEROL FUMARATE 80/4.5 mcg INHALER IH SCH (10:15)
[2016-12-31] MEDS: busPIRone HCL 5 MG TABLET PO SCH (10:15)
[2016-12-31] MEDS: DOCUSATE SODIUM 100 MG CAPSULE (FP) PO SCH (10:15)
[2016-12-31] MEDS: guaiFENesin 600 MG TABLET.ER (FP) PO SCH (10:15)
[2016-12-31] MEDS: CLOTRIMAZOLE/BETAMET DIPROP 15 GM TUBE TP SCH (10:16)
[2016-12-31] MEDS: POLYETHYLENE GLYCOL 3350 119 GM BTL PO SCH (10:18)
[2016-12-31] MEDS: FLUTICASONE PROP 0.05% 16 GM NASAL SPRAY NS SCH (10:19)
[2016-12-31] MEDS: ALBUTEROL SO4 2.5/IPRATROPIUM 0.5 INH SOL 3 ML VIAL.NEB. NEB PRN (10:42)
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
== END 2016-12-31 11:45 | disposition home or self-care (01) | DRG 772 ==
LOC: YASAS 16:50 → Y5N 19:43
PROVIDERS: ADMIT Psychiatry & Neurology Psychiatry; ATTEND Psychiatry & Neurology Psychiatry
PROC: HZ42ZZZ Group Counseling for Substance Abuse Treatment, Cognitive-Behavioral (ICD-10-PCS; principal; 2016-12-31)
DX: F11.23 Opioid dependence with withdrawal (principal); F17.210 Nicotine dependence, cigarettes, uncomplicated; J43.0 Unilateral pulmonary emphysema [MacLeod's syndrome]; K44.9 Diaphragmatic hernia without obstruction or gangrene; K21.9 Gastro-esophageal reflux disease without esophagitis; M54.5 Low back pain; G89.29 Other chronic pain
CPT/HCPCS: 36415; 71020-TC; 80053; 81003; 85027; 86593; 86803; 90732; 93005; 93010; 94640; G0009

== ENCOUNTER 2017-03-24 10:08 | Inpatient (IN) | payer OTHER ==
[2017-03-24 11:07] VITALS: BMI 25.0
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
[2017-03-24] MEDS ORDERED: NICOTINE POLACRILEX 4 MG GUM BUC PRN (12:10)
[2017-03-24] MEDS ORDERED: P-EPHED 60MG/TRIPROLIDI 2.5MG TABLET PO PRN (12:10)
[2017-03-24] MEDS ORDERED: LOPERAMIDE HCL 2 MG CAPSULE PO PRN (12:10)
[2017-03-24] MEDS ORDERED: guaiFENesin/D-METHORPHAN HB 10 ML UNIT-DOSE CUPS PO PRN (12:10)
[2017-03-24] MEDS ORDERED: IBUPROFEN 400 MG TABLET (FP) PO PRN (12:10)
[2017-03-24] MEDS ORDERED: diphenhydrAMINE HCL 50 MG CAPSULE PO PRN (12:10)
[2017-03-24] MEDS ORDERED: hydrOXYzine PAMOATE 25 MG CAPSULE (FP) PO PRN (12:10)
[2017-03-24] MEDS ORDERED: MAG HYDROX/AL HYDROX/SIMETH 30 ML UNIT-DOSE CUP PO PRN (12:10)
[2017-03-24] MEDS ORDERED: MENTHOL/PHENOL 1 EACH UD MM PRN (12:10)
[2017-03-24] MEDS ORDERED: MAGNESIUM CITRATE 300 ML BOTTLE PO PRN (12:10)
[2017-03-24] MEDS ORDERED: ACETAMINOPHEN 325 MG TABLET (FP) PO PRN (12:10)
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
[2017-03-24] MEDS ORDERED: METHADONE HCL 10 MG TABLET PO ONE (12:14)
[2017-03-24] MEDS: FLUTICASONE PROP 0.05% 16 GM NASAL SPRAY NS SCH ×2 (12:53→21:34)
[2017-03-24] MEDS ORDERED: METHADONE 40 MG, METHADONE 20 MG PO ONE (13:08)
[2017-03-24 14:48] LABS: MCH 27.9 pg (25.7-33.7); MCHC 33.3 g/dl (32.0-35.9); MEAN CELL VOLUME 83.7 fl (80-96); MEAN PLT VOLUME 7.7 fl (7.5-11.1); PLATELET COUNT 179 K/MM3 (134-434); RDW 13.4 % (11.9-15.9); WHITE BLOOD COUNT 7.8 K/mm3 (4.0-10.0)
[2017-03-24] MEDS ORDERED: METHADONE HCL 10 MG TABLET ONE (15:01)
[2017-03-24] MEDS ORDERED: METHADONE HCL 40 MG DISPERSABLE TABLET ONE (15:01)
[2017-03-24] MEDS: NICOTINE 21 MG/24 HOURS TOPICAL PATCH TD SCH (15:14)
[2017-03-24 15:20] LABS: ALBUMIN 4.4 g/dl (3.4-5.0); ALK PHOS 70 U/L (45-117); ANION GAP 9 (8-16); BILIRUBIN,TOTAL 0.4 mg/dL (0.2-1.0); CALCIUM 9.3 mg/dL (8.5-10.1); CO2 28 mmol/L (21-32); COCKROFT - GAULT 112.89; GLUCOSE,RANDOM 106 mg/dL (74-106); SGOT/AST 24 U/L (15-37); SGPT/ALT 35 U/L (12-78); TOT PROT 7.9 g/dl (6.4-8.2)
[2017-03-24] MEDS ORDERED: PT OWN MED DRAWER 7, Y5N ONE ×2 (15:53→21:35)
[2017-03-24 18:01] LABS: URINE APPEARANCE SLCLOUDY; URINE BILIRUBIN NEGATIVE (NEGATIVE); URINE BLOOD NEGATIVE (NEGATIVE); URINE COLOR YELLOW; URINE GLUCOSE (UA) NEGATIVE (NEGATIVE); URINE KETONE NEGATIVE (NEGATIVE); URINE LEUK ESTERASE NEGATIVE (NEGATIVE); URINE NITRITE NEGATIVE (NEGATIVE); URINE PROTEIN NEGATIVE (NEGATIVE); URINE UROBILINOGEN NEGATIVE E.U./dl (0.2-1.0)
[2017-03-24] MEDS: BISACODYL 5 MG TABLET.DR (FP) PO SCH (21:33)
[2017-03-24] MEDS: traZODone HCL 50 MG TABLET (FP) PO SCH (21:33)
[2017-03-24] MEDS: THIAMINE HCL 100 MG TABLET (FP) PO SCH (21:36)
[2017-03-25] MEDS ORDERED: METHADONE HCL 10 MG TABLET ONE (04:02)
[2017-03-25] MEDS ORDERED: METHADONE HCL 40 MG DISPERSABLE TABLET ONE (04:02)
[2017-03-25] MEDS ORDERED: METHADONE HCL 40 MG DISPERSABLE TABLET PO SCH (06:00)
[2017-03-25] MEDS: METHADONE 40 MG, METHADONE 20 MG PO SCH (06:19)
[2017-03-25] MEDS: ALBUTEROL SO4 18 GM HFA INHALER IH PRN ×2 (06:22→09:41)
--- NOTE | 2017-03-25 08:25 | EKG ---
Test Reason : Blood Pressure : / mmHG Vent. Rate : 056 BPM Atrial Rate : 056 BPM P-R Int : 122 ms QRS Dur : 100 ms QT Int : 422 ms P-R-T Axes : 001 027 013 degrees QTc Int : 407 ms SINUS BRADYCARDIA OTHERWISE NORMAL ECG NO PREVIOUS ECGS AVAILABLE Confirmed by PK NDIAYE MD ([id number]) on 03/25/2017 8:25:11 AM Referred By: Cristina Burkett Confirmed By:PK NDIAYE MD
[2017-03-25] MEDS ORDERED: PT OWN MED DRAWER 7, Y5N ONE (08:43)
[2017-03-25] MEDS: FLUTICASONE PROP 0.05% 16 GM NASAL SPRAY NS SCH ×2 (09:40→21:37)
[2017-03-25] MEDS: SERTRALINE HCL 50 MG TABLET (FP) PO SCH (09:40)
[2017-03-25] MEDS: PRENATAL VITAMINS W/ FOLIC ACID TABLET (FP) PO SCH (09:41)
[2017-03-25] MEDS: NICOTINE 21 MG/24 HOURS TOPICAL PATCH TD SCH (10:40)
[2017-03-25] MEDS: traZODone HCL 50 MG TABLET (FP) PO SCH (21:37)
[2017-03-25] MEDS: THIAMINE HCL 100 MG TABLET (FP) PO SCH (21:37)
[2017-03-25] MEDS: BISACODYL 5 MG TABLET.DR (FP) PO SCH (21:37)
[2017-03-26] MEDS ORDERED: METHADONE HCL 40 MG DISPERSABLE TABLET ONE (03:09)
[2017-03-26] MEDS ORDERED: METHADONE HCL 10 MG TABLET ONE (03:09)
[2017-03-26] MEDS: METHADONE 40 MG, METHADONE 20 MG PO SCH (06:12)
[2017-03-26] MEDS ORDERED: PT OWN MED DRAWER 7, Y5N ONE (09:20)
[2017-03-26] MEDS: FLUTICASONE PROP 0.05% 16 GM NASAL SPRAY NS SCH ×2 (09:58→23:07)
[2017-03-26] MEDS: SERTRALINE HCL 50 MG TABLET (FP) PO SCH (09:58)
[2017-03-26] MEDS: NICOTINE 21 MG/24 HOURS TOPICAL PATCH TD SCH (09:58)
[2017-03-26] MEDS: PRENATAL VITAMINS W/ FOLIC ACID TABLET (FP) PO SCH (09:58)
[2017-03-26] MEDS: ALBUTEROL SO4 18 GM HFA INHALER IH PRN (09:59)
[2017-03-26] MEDS: BISACODYL 5 MG TABLET.DR (FP) PO SCH (23:07)
[2017-03-26] MEDS: traZODone HCL 50 MG TABLET (FP) PO SCH (23:07)
[2017-03-26] MEDS: THIAMINE HCL 100 MG TABLET (FP) PO SCH (23:07)
[2017-03-27] MEDS ORDERED: METHADONE HCL 10 MG TABLET ONE (04:02)
[2017-03-27] MEDS ORDERED: METHADONE HCL 40 MG DISPERSABLE TABLET ONE (04:02)
[2017-03-27] MEDS: METHADONE 40 MG, METHADONE 20 MG PO SCH (05:58)
[2017-03-27] MEDS ORDERED: PT OWN MED DRAWER 7, Y5N ONE ×2 (09:45→20:04)
[2017-03-27] MEDS: SERTRALINE HCL 50 MG TABLET (FP) PO SCH (09:46)
[2017-03-27] MEDS: PRENATAL VITAMINS W/ FOLIC ACID TABLET (FP) PO SCH (09:46)
[2017-03-27] MEDS: NICOTINE 21 MG/24 HOURS TOPICAL PATCH TD SCH (10:47)
[2017-03-27] MEDS: FLUTICASONE PROP 0.05% 16 GM NASAL SPRAY NS SCH ×2 (10:47→21:39)
[2017-03-27] MEDS: METOCLOPRAMIDE HCL 10 MG TABLET (FP) PO SCH ×2 (12:26→21:19)
[2017-03-27] MEDS: PANTOPRAZOLE 40 MG TABLET (FP) PO SCH (13:52)
[2017-03-27] MEDS: OXYMETAZOLINE 0.05% NASAL SOLUTION 15 ML BOTTLE NS SCH (21:18)
[2017-03-27] MEDS: THIAMINE HCL 100 MG TABLET (FP) PO SCH (21:19)
[2017-03-27] MEDS: BISACODYL 5 MG TABLET.DR (FP) PO SCH (21:39)
[2017-03-27] MEDS: traZODone HCL 50 MG TABLET (FP) PO SCH (21:39)
[2017-03-28] MEDS ORDERED: METHADONE HCL 40 MG DISPERSABLE TABLET ONE (04:11)
[2017-03-28] MEDS ORDERED: METHADONE HCL 10 MG TABLET ONE (04:11)
[2017-03-28] MEDS: METHADONE 40 MG, METHADONE 20 MG PO SCH (06:08)
[2017-03-28] MEDS: METOCLOPRAMIDE HCL 10 MG TABLET (FP) PO SCH ×2 (07:07→21:28)
[2017-03-28] MEDS ORDERED: PT OWN MED DRAWER 7, Y5N ONE (08:24)
[2017-03-28] MEDS: PRENATAL VITAMINS W/ FOLIC ACID TABLET (FP) PO SCH (09:48)
[2017-03-28] MEDS: NICOTINE 21 MG/24 HOURS TOPICAL PATCH TD SCH (09:49)
[2017-03-28] MEDS: PANTOPRAZOLE 40 MG TABLET (FP) PO SCH (09:49)
[2017-03-28] MEDS: FLUTICASONE PROP 0.05% 16 GM NASAL SPRAY NS SCH ×2 (09:49→21:29)
[2017-03-28] MEDS: SERTRALINE HCL 50 MG TABLET (FP) PO SCH (09:50)
[2017-03-28] MEDS: ALBUTEROL SO4 18 GM HFA INHALER IH PRN (09:50)
[2017-03-28] MEDS: OXYMETAZOLINE 0.05% NASAL SOLUTION 15 ML BOTTLE NS SCH (21:28)
[2017-03-28] MEDS: MAGNESIUM HYDROX 2400MG/30ML ORAL SUSPENSION 30 ML CUP PO PRN (21:28)
[2017-03-28] MEDS: THIAMINE HCL 100 MG TABLET (FP) PO SCH (21:28)
[2017-03-28] MEDS: traZODone HCL 50 MG TABLET (FP) PO SCH (21:30)
[2017-03-28] MEDS: BISACODYL 5 MG TABLET.DR (FP) PO SCH (21:31)
[2017-03-29] MEDS ORDERED: METHADONE HCL 10 MG TABLET ONE (04:03)
[2017-03-29] MEDS ORDERED: METHADONE HCL 40 MG DISPERSABLE TABLET ONE (04:03)
[2017-03-29] MEDS: METHADONE 40 MG, METHADONE 20 MG PO SCH (06:12)
[2017-03-29] MEDS: METOCLOPRAMIDE HCL 10 MG TABLET (FP) PO SCH ×2 (07:12→21:28)
[2017-03-29] MEDS ORDERED: PT OWN MED DRAWER 7, Y5N ONE (08:28)
[2017-03-29] MEDS: SERTRALINE HCL 50 MG TABLET (FP) PO SCH (09:42)
[2017-03-29] MEDS: FLUTICASONE PROP 0.05% 16 GM NASAL SPRAY NS SCH ×2 (09:42→21:29)
[2017-03-29] MEDS: ALBUTEROL SO4 18 GM HFA INHALER IH PRN (09:42)
[2017-03-29] MEDS: PANTOPRAZOLE 40 MG TABLET (FP) PO SCH (09:42)
[2017-03-29] MEDS: PRENATAL VITAMINS W/ FOLIC ACID TABLET (FP) PO SCH (09:42)
[2017-03-29] MEDS: MAGNESIUM HYDROX 2400MG/30ML ORAL SUSPENSION 30 ML CUP PO PRN (09:43)
[2017-03-29] MEDS: NICOTINE 21 MG/24 HOURS TOPICAL PATCH TD SCH (09:45)
[2017-03-29] MEDS: traZODone HCL 50 MG TABLET (FP) PO SCH (21:27)
[2017-03-29] MEDS: OXYMETAZOLINE 0.05% NASAL SOLUTION 15 ML BOTTLE NS SCH (21:27)
[2017-03-29] MEDS: BISACODYL 5 MG TABLET.DR (FP) PO SCH (21:27)
[2017-03-29] MEDS: THIAMINE HCL 100 MG TABLET (FP) PO SCH (21:29)
[2017-03-30] MEDS ORDERED: METHADONE HCL 40 MG DISPERSABLE TABLET ONE (03:42)
[2017-03-30] MEDS ORDERED: METHADONE HCL 10 MG TABLET ONE (03:42)
[2017-03-30] MEDS: METHADONE 40 MG, METHADONE 20 MG PO SCH (06:02)
[2017-03-30] MEDS ORDERED: PT OWN MED DRAWER 7, Y5N ONE ×2 (06:35→06:54)
[2017-03-30] MEDS: METOCLOPRAMIDE HCL 10 MG TABLET (FP) PO SCH ×2 (06:56→22:13)
[2017-03-30] MEDS: FLUTICASONE PROP 0.05% 16 GM NASAL SPRAY NS SCH ×2 (09:35→22:14)
[2017-03-30] MEDS: SERTRALINE HCL 50 MG TABLET (FP) PO SCH (09:35)
[2017-03-30] MEDS: PANTOPRAZOLE 40 MG TABLET (FP) PO SCH (09:35)
[2017-03-30] MEDS: PRENATAL VITAMINS W/ FOLIC ACID TABLET (FP) PO SCH (09:35)
[2017-03-30] MEDS: NICOTINE 21 MG/24 HOURS TOPICAL PATCH TD SCH (09:35)
[2017-03-30] MEDS: ALBUTEROL SO4 18 GM HFA INHALER IH PRN (09:36)
[2017-03-30] MEDS: OXYMETAZOLINE 0.05% NASAL SOLUTION 15 ML BOTTLE NS SCH (22:12)
[2017-03-30] MEDS: BISACODYL 5 MG TABLET.DR (FP) PO SCH (22:13)
[2017-03-30] MEDS: THIAMINE HCL 100 MG TABLET (FP) PO SCH (22:13)
[2017-03-30] MEDS: traZODone HCL 50 MG TABLET (FP) PO SCH (22:13)
[2017-03-31] MEDS ORDERED: METHADONE HCL 40 MG DISPERSABLE TABLET ONE (04:04)
[2017-03-31] MEDS ORDERED: METHADONE HCL 10 MG TABLET ONE (04:04)
[2017-03-31] MEDS ORDERED: METHADONE 40 MG, METHADONE 20 MG PO SCH (06:00)
[2017-03-31] MEDS ORDERED: METHADONE HCL 40 MG DISPERSABLE TABLET PO SCH ×2 (06:00)
[2017-03-31] MEDS: METHADONE 40 MG, METHADONE 10 MG PO SCH (06:04)
[2017-03-31] MEDS: METOCLOPRAMIDE HCL 10 MG TABLET (FP) PO SCH ×2 (06:33→21:40)
[2017-03-31] MEDS ORDERED: PT OWN MED DRAWER 7, Y5N ONE ×2 (08:25→21:42)
[2017-03-31] MEDS: SERTRALINE HCL 50 MG TABLET (FP) PO SCH (09:43)
[2017-03-31] MEDS: PRENATAL VITAMINS W/ FOLIC ACID TABLET (FP) PO SCH (09:43)
[2017-03-31] MEDS: PANTOPRAZOLE 40 MG TABLET (FP) PO SCH (09:43)
[2017-03-31] MEDS: FLUTICASONE PROP 0.05% 16 GM NASAL SPRAY NS SCH ×2 (09:43→21:41)
[2017-03-31] MEDS: NICOTINE 21 MG/24 HOURS TOPICAL PATCH TD SCH (09:44)
[2017-03-31] MEDS: traZODone HCL 50 MG TABLET (FP) PO SCH (21:40)
[2017-03-31] MEDS: THIAMINE HCL 100 MG TABLET (FP) PO SCH (21:40)
[2017-03-31] MEDS: BISACODYL 5 MG TABLET.DR (FP) PO SCH (21:41)
[2017-03-31] MEDS: OXYMETAZOLINE 0.05% NASAL SOLUTION 15 ML BOTTLE NS SCH (21:42)
[2017-04-01] MEDS ORDERED: METHADONE HCL 10 MG TABLET ONE (04:16)
[2017-04-01] MEDS ORDERED: METHADONE HCL 40 MG DISPERSABLE TABLET ONE (04:16)
[2017-04-01] MEDS: METHADONE 40 MG, METHADONE 10 MG PO SCH (06:14)
[2017-04-01] MEDS: METOCLOPRAMIDE HCL 10 MG TABLET (FP) PO SCH ×2 (06:32→21:54)
[2017-04-01] MEDS: PRENATAL VITAMINS W/ FOLIC ACID TABLET (FP) PO SCH (09:37)
[2017-04-01] MEDS: PANTOPRAZOLE 40 MG TABLET (FP) PO SCH (09:37)
[2017-04-01] MEDS: FLUTICASONE PROP 0.05% 16 GM NASAL SPRAY NS SCH ×2 (09:38→23:00)
[2017-04-01] MEDS: SERTRALINE HCL 50 MG TABLET (FP) PO SCH (09:38)
[2017-04-01] MEDS: NICOTINE 21 MG/24 HOURS TOPICAL PATCH TD SCH (09:38)
[2017-04-01] MEDS: ALBUTEROL SO4 18 GM HFA INHALER IH PRN (09:38)
[2017-04-01] MEDS: traZODone HCL 50 MG TABLET (FP) PO SCH (21:53)
[2017-04-01] MEDS: BISACODYL 5 MG TABLET.DR (FP) PO SCH (21:54)
[2017-04-01] MEDS: THIAMINE HCL 100 MG TABLET (FP) PO SCH (21:54)
[2017-04-01] MEDS: OXYMETAZOLINE 0.05% NASAL SOLUTION 15 ML BOTTLE NS SCH (21:55)
[2017-04-01] MEDS ORDERED: PT OWN MED DRAWER 7, Y5N ONE ×2 (21:55→21:56)
[2017-04-02] MEDS ORDERED: METHADONE HCL 40 MG DISPERSABLE TABLET ONE (02:53)
[2017-04-02] MEDS ORDERED: METHADONE HCL 10 MG TABLET ONE (02:53)
[2017-04-02] MEDS: METHADONE 40 MG, METHADONE 10 MG PO SCH (06:24)
[2017-04-02] MEDS: METOCLOPRAMIDE HCL 10 MG TABLET (FP) PO SCH ×2 (06:39→21:37)
[2017-04-02] MEDS: PANTOPRAZOLE 40 MG TABLET (FP) PO SCH (09:45)
[2017-04-02] MEDS: SERTRALINE HCL 50 MG TABLET (FP) PO SCH (09:45)
[2017-04-02] MEDS: PRENATAL VITAMINS W/ FOLIC ACID TABLET (FP) PO SCH (09:45)
[2017-04-02] MEDS: NICOTINE 21 MG/24 HOURS TOPICAL PATCH TD SCH (09:46)
[2017-04-02] MEDS: FLUTICASONE PROP 0.05% 16 GM NASAL SPRAY NS SCH ×2 (09:46→21:38)
[2017-04-02] MEDS: THIAMINE HCL 100 MG TABLET (FP) PO SCH (21:36)
[2017-04-02] MEDS: traZODone HCL 50 MG TABLET (FP) PO SCH (21:36)
[2017-04-02] MEDS: BISACODYL 5 MG TABLET.DR (FP) PO SCH (21:37)
[2017-04-02] MEDS: OXYMETAZOLINE 0.05% NASAL SOLUTION 15 ML BOTTLE NS SCH (21:37)
[2017-04-02] MEDS ORDERED: PT OWN MED DRAWER 7, Y5N ONE (21:38)
[2017-04-03] MEDS ORDERED: METHADONE HCL 40 MG DISPERSABLE TABLET ONE (05:05)
[2017-04-03] MEDS ORDERED: METHADONE HCL 10 MG TABLET ONE (05:05)
[2017-04-03] MEDS: METHADONE 40 MG, METHADONE 10 MG PO SCH (06:08)
[2017-04-03] MEDS: METOCLOPRAMIDE HCL 10 MG TABLET (FP) PO SCH ×2 (06:32→21:43)
[2017-04-03] MEDS ORDERED: PT OWN MED DRAWER 7, Y5N ONE ×2 (08:38→21:42)
[2017-04-03] MEDS: SERTRALINE HCL 50 MG TABLET (FP) PO SCH (10:00)
[2017-04-03] MEDS: PANTOPRAZOLE 40 MG TABLET (FP) PO SCH (10:00)
[2017-04-03] MEDS: NICOTINE 21 MG/24 HOURS TOPICAL PATCH TD SCH (10:00)
[2017-04-03] MEDS: PRENATAL VITAMINS W/ FOLIC ACID TABLET (FP) PO SCH (10:00)
[2017-04-03] MEDS: FLUTICASONE PROP 0.05% 16 GM NASAL SPRAY NS SCH ×2 (10:01→21:43)
[2017-04-03] MEDS: BISACODYL 5 MG TABLET.DR (FP) PO SCH (21:43)
[2017-04-03] MEDS: THIAMINE HCL 100 MG TABLET (FP) PO SCH (21:43)
[2017-04-03] MEDS: OXYMETAZOLINE 0.05% NASAL SOLUTION 15 ML BOTTLE NS SCH (21:43)
[2017-04-03] MEDS: traZODone HCL 50 MG TABLET (FP) PO SCH (21:43)
[2017-04-04] MEDS ORDERED: METHADONE HCL 10 MG TABLET ONE (05:48)
[2017-04-04] MEDS ORDERED: METHADONE HCL 40 MG DISPERSABLE TABLET ONE (05:48)
[2017-04-04] MEDS: METHADONE 40 MG, METHADONE 10 MG PO SCH (06:42)
[2017-04-04] MEDS: METOCLOPRAMIDE HCL 10 MG TABLET (FP) PO SCH ×2 (06:43→21:41)
[2017-04-04] MEDS: NICOTINE 21 MG/24 HOURS TOPICAL PATCH TD SCH (09:49)
[2017-04-04] MEDS: PANTOPRAZOLE 40 MG TABLET (FP) PO SCH (09:49)
[2017-04-04] MEDS: FLUTICASONE PROP 0.05% 16 GM NASAL SPRAY NS SCH ×2 (09:49→22:15)
[2017-04-04] MEDS: PRENATAL VITAMINS W/ FOLIC ACID TABLET (FP) PO SCH (09:49)
[2017-04-04] MEDS: SERTRALINE HCL 50 MG TABLET (FP) PO SCH (09:49)
[2017-04-04] MEDS: THIAMINE HCL 100 MG TABLET (FP) PO SCH (21:40)
[2017-04-04] MEDS: BISACODYL 5 MG TABLET.DR (FP) PO SCH (21:40)
[2017-04-04] MEDS: traZODone HCL 50 MG TABLET (FP) PO SCH (21:40)
[2017-04-04] MEDS: OXYMETAZOLINE 0.05% NASAL SOLUTION 15 ML BOTTLE NS SCH (21:41)
[2017-04-04] MEDS ORDERED: PT OWN MED DRAWER 7, Y5N ONE (21:42)
[2017-04-05] MEDS ORDERED: METHADONE HCL 40 MG DISPERSABLE TABLET ONE (05:39)
[2017-04-05] MEDS ORDERED: METHADONE HCL 10 MG TABLET ONE (05:39)
[2017-04-05] MEDS: METHADONE 40 MG, METHADONE 10 MG PO SCH (06:14)
[2017-04-05] MEDS: METOCLOPRAMIDE HCL 10 MG TABLET (FP) PO SCH ×2 (06:32→21:26)
[2017-04-05] MEDS ORDERED: PT OWN MED DRAWER 7, Y5N ONE ×2 (08:28→21:27)
[2017-04-05] MEDS: FLUTICASONE PROP 0.05% 16 GM NASAL SPRAY NS SCH ×2 (09:51→22:46)
[2017-04-05] MEDS: PANTOPRAZOLE 40 MG TABLET (FP) PO SCH (09:51)
[2017-04-05] MEDS: PRENATAL VITAMINS W/ FOLIC ACID TABLET (FP) PO SCH (09:51)
[2017-04-05] MEDS: SERTRALINE HCL 50 MG TABLET (FP) PO SCH (09:51)
[2017-04-05] MEDS: NICOTINE 21 MG/24 HOURS TOPICAL PATCH TD SCH (09:51)
[2017-04-05] MEDS: MAGNESIUM HYDROX 2400MG/30ML ORAL SUSPENSION 30 ML CUP PO PRN (15:48)
[2017-04-05] MEDS: THIAMINE HCL 100 MG TABLET (FP) PO SCH (21:25)
[2017-04-05] MEDS: traZODone HCL 50 MG TABLET (FP) PO SCH (21:25)
[2017-04-05] MEDS: BISACODYL 5 MG TABLET.DR (FP) PO SCH (21:26)
[2017-04-05] MEDS: OXYMETAZOLINE 0.05% NASAL SOLUTION 15 ML BOTTLE NS SCH (21:26)
[2017-04-06] MEDS ORDERED: METHADONE HCL 10 MG TABLET ONE (04:01)
[2017-04-06] MEDS ORDERED: METHADONE HCL 40 MG DISPERSABLE TABLET ONE (04:01)
[2017-04-06] MEDS ORDERED: METHADONE 40 MG, METHADONE 10 MG PO SCH (06:00)
[2017-04-06 07:06] VITALS: BP 127/73; PULSE 57; TEMP 97.5
[2017-04-06] MEDS: METOCLOPRAMIDE HCL 10 MG TABLET (FP) PO SCH (07:08)
--- NOTE | 2017-04-06 09:16 | PN ---
Psychiatric Progress Note Vital Signs: Vital Signs Period Temp Pulse Resp BP Sys/Peters Pulse Ox Last 24 Hr 97.5 F 57 18-18 127/73 Date of Session: 04/06/17 Chief Complaint:: Discharge Note HPI: Patient addressing Opoid Dependence comorbid with Nicotine Dependence and Anxiety Disorder ROS: COPD, Herniated Disc/LBP, Hiatal Hernia/GERD Current Medications: Active Medications Generic Name Dose Route Start Last Admin Trade Name Freq PRN Reason Stop Dose Admin Acetaminophen 650 mg 03/24/17 12:10 Tylenol - PO Q4H PRN PAIN Al Hydroxide/Mg Hydroxide 30 ml 03/24/17 12:10 Mylanta Oral Suspension - PO Q6H PRN DYSPEPSIA Albuterol Sulfate 2 puff 03/24/17 12:11 04/01/17 09:38 Ventolin Hfa Inhaler - IH 2 puff Q4H PRN Administration ASTHMA Bisacodyl 5 mg 03/24/17 22:00 04/05/17 21:26 Dulcolax - PO 5 mg HS STEVIE Administration Diphenhydramine HCl 50 mg 03/24/17 12:10 Benadryl - PO HSMR1 PRN INSOMNIA Eucalyptus/Menthol/Phenol/Sorbitol 1 each 03/24/17 12:10 Cepastat Lozenge - MM Q4H PRN SORE THROAT Fluticasone Propionate 1 spray 03/24/17 12:15 04/05/17 22:46 Flonase - NS Not Given BID STEVIE Guaifenesin 10 ml 03/24/17 12:10 03/24/17 15:14 Robitussin Dm - PO 10 ml Q6H PRN Administration COUGH Hydroxyzine Pamoate 25 mg 03/24/17 12:10 Vistaril - PO Q4H PRN AGITATION Ibuprofen 400 mg 03/24/17 12:10 Motrin - PO Q6H PRN SEVERE PAIN Loperamide HCl 4 mg 03/24/17 12:10 Imodium - PO Q6H PRN DIARRHEA Magnesium Citrate 300 ml 03/24/17 12:10 Citroma - PO Q48H PRN CONSTIPATION Magnesium Hydroxide 30 ml 03/24/17 12:10 04/05/17 15:48 Milk Of Magnesia - PO 30 ml DAILY PRN Administration CONSTIPATION Methadone HCl 40 mg/ Methadone 50 mg 04/06/17 06:00 04/06/17 06:03 HCl 10 mg PO 50 mg DAILY@0600 STEVIE Administration Metoclopramide HCl 10 mg 03/27/17 12:15 04/06/17 07:08 Reglan - PO 10 mg BID@0730,2200 STEVIE Administration Nicotine 21 mg 03/24/17 12:15 04/05/17 09:51 Nicoderm Patch - TD Not Given DAILY STEVIE Nicotine Polacrilex 4 mg 03/24/17 12:10 Nicorette Gum - BUC Q2H PRN NICOTINE REPLACEMENT RX Oxymetazoline HCl 1 spray 03/27/17 22:00 04/05/17 21:26 Afrin - NS 1 spray HS STEVIE Administration Pantoprazole Sodium 40 mg 03/27/17 12:15 04/05/17 09:51 Protonix - PO 40 mg DAILY STEVIE Administration Multivit/Folic Acid/Iron 1 tab 03/25/17 10:00 04/05/17 09:51 Vitamins (Sjr) - PO 1 tab DAILY STEVIE Administration Pseudoephedrine/Triprolidine 1 combo 03/24/17 12:10 Actifed - PO TID PRN NASAL CONGESTION Sertraline HCl 50 mg 03/25/17 10:00 04/05/17 09:51 Zoloft - PO 50 mg DAILY STEVIE Administration Thiamine HCl 100 mg 03/24/17 22:00 04/05/17 21:25 Vitamin B1 - PO 100 mg HS STEVIE Administration Trazodone HCl 50 mg 03/24/17 22:00 04/05/17 21:25 Desyrel - PO 50 mg HS STEVIE Administration Current Side Effect: No Lab tests ordered: Yes Lab tests reviewed: Yes Provider note:: Patient has completed this program today. He has partially met his treatment goals and will continue to address his issues in outpatient treatment at [facility]. Told chart writer that from his participation in this program, he has learned to identify his triggers and has developed coping skills against them. He responded well to Zoloft 50 mg po daily and Trazadone 50 mg po HS. Scripts for 30 days supply of these medications are electronically transmitted to [facility] at [address] [place] [id number]. He is stable for discharge today Total face to face time:: 35 Mental Status Exam - Mental Status Exam Alert and Oriented to: Time, Place, Person Cognitive Function: Fair Mood: Hopeful, Euthymic Affect: Appropriate Patient Behavior: Cooperative Speech Pattern: Clear Voice Loudness: Normal Thought Process: Intact Thought Disorder: Not Present Hallucinations: Denies Suicidal Ideation: Denies Homicidal Ideation: Denies Insight/Judgement: Fair Sleep: Fair Appetite: Good Muscle strength/Tone: Normal Gait/Station: Normal Psychiatric Treatment Plan - Problem List (1) Opioid dependence with withdrawal Current Visit: No (2) Opioid dependence on agonist therapy Current Visit: Yes (3) Nicotine dependence Current Visit: Yes Qualifiers: Nicotine product type: cigarettes Substance use status: in withdrawal Qualified Code(s): F17.213 - Nicotine dependence, cigarettes, with withdrawal Initial treatment plan: Patient is discharged today and referred to [facility] for outpatient treatment
[2017-04-06] MEDS: SERTRALINE HCL 50 MG TABLET (FP) PO SCH (09:59)
[2017-04-06] MEDS: PRENATAL VITAMINS W/ FOLIC ACID TABLET (FP) PO SCH (09:59)
[2017-04-06] MEDS: PANTOPRAZOLE 40 MG TABLET (FP) PO SCH (09:59)
[2017-04-06] MEDS ORDERED: PT OWN MED DRAWER 7, Y5N ONE (10:02)
[2017-04-06] MEDS: NICOTINE 21 MG/24 HOURS TOPICAL PATCH TD SCH (10:55)
[2017-04-06] MEDS: FLUTICASONE PROP 0.05% 16 GM NASAL SPRAY NS SCH (10:55)
== END 2017-04-06 10:35 | disposition home or self-care (01) | DRG 772 ==
LOC: YASAS 10:08 → Y3W 11:40
PROVIDERS: ADMIT Psychiatry & Neurology Psychiatry; ATTEND Psychiatry & Neurology Psychiatry
PROC: HZ42ZZZ Group Counseling for Substance Abuse Treatment, Cognitive-Behavioral (ICD-10-PCS; principal; 2017-04-06)
DX: F11.23 Opioid dependence with withdrawal (principal); F17.213 Nicotine dependence, cigarettes, with withdrawal; K21.9 Gastro-esophageal reflux disease without esophagitis; J44.9 Chronic obstructive pulmonary disease, unspecified
CPT/HCPCS: 36415; 80053; 81003; 85027; 86593; 93005; 93010